=== PATIENT | female | born 1940 | race Native Hawaiian/Other Pacific Islander ===

== ENCOUNTER 2017-10-02 06:15 | Inpatient (IN) | payer MEDICARE ==
[2017-10-02] MEDS ORDERED: Sodium Chloride 0.9% 1,000 ML IV ONE (07:18)
[2017-10-02 07:34] LABS: BASO % 0.5 % (0.0-2.0); EOS # 0.2 K/uL (0.0-0.7); EOS % 3.2 % (0.0-4.0); LYMPH # 1.5 K/uL (1.0-4.3); LYMPH % 20.4 % (20.0-40.0); MEAN CELL VOLUME 86.7 fL (81.0-99.0); MEAN CORPUSCULAR HEMOGLOBIN 29.5 pg (27.0-31.0); MEAN CORPUSCULAR HGB CONC 34.1 g/dL (33.0-37.0); MEAN PLATELET VOLUME 7.9 fL (7.2-11.7); MONO # 1.1 K/uL (0.0-0.8); MONO % 14.9 % (0.0-10.0); NEUT # 4.5 K/uL (1.8-7.0); NRBC % 0.1 % (0.0-2.0); RBC 4.05 Mil/uL (3.80-5.20); RED CELL DISTRIBUTION WIDTH 14.2 % (11.5-14.5); WHITE BLOOD COUNT 7.3 K/uL (4.8-10.8)
[2017-10-02] MEDS ORDERED: Sodium Chloride 0.9% 1,000 ML ONE (08:02)
[2017-10-02 08:17] LABS: ALBUMIN 4.1 g/dL (3.5-5.0); ALT/SGPT 26 U/L (9-52); AST/SGOT 30 U/L (14-36); BLOOD UREA NITROGEN 33 mg/dL (7-17); CALCIUM 8.5 mg/dl (8.6-10.4); GFR AFRICAN-AMERICAN 33; GFR NON-AFRICAN AMERICAN 27
--- NOTE | 2017-10-02 09:42 | RAD ---
HISTORY: r/o infiltrate COMPARISON: Comparison is made to 02/25/2015 TECHNIQUE: Chest PA and lateral FINDINGS: LUNGS: No significant interval change in the lungs noted since the previous exam. Again noted are reticular opacities associated with bronchiectasis at the right upper lobe likely represent lung fibrosis and sequela of prior infection or inflammatory process. PLEURA: No significant pleural effusion identified. No pneumothorax apparent. CARDIOVASCULAR: Normal. OSSEOUS STRUCTURES: No significant abnormalities. VISUALIZED UPPER ABDOMEN: Normal. OTHER FINDINGS: None. IMPRESSION: No active disease.
[2017-10-02 10:03] LABS: SQUAMOUS EPITHIAL < 1 /hpf (0-5); URINE BACTERIA RARE (<OCC); URINE BILIRUBIN NEGATIVE (NEGATIVE); URINE BLOOD NEGATIVE (NEGATIVE); URINE CLARITY Clear (Clear); URINE COLOR Straw (YELLOW); URINE GLUCOSE (UA) NORMAL (Normal); URINE LEUKOCYTE ESTERASE NEG Leu/uL (Negative); URINE NITRATE NEGATIVE (NEGATIVE); URINE PROTEIN NEGATIVE (NEGATIVE); URINE UROBILINOGEN NORMAL mg/dL (0.2-1.0)
--- NOTE | 2017-10-02 12:51 | C.PDOC ---
History Of Present Illness 77 y/o female presents to the ED c/o lightheadedness and dizziness for past 2 days and several episodes of vomiting that began last night . The patient notes that the vomit consisted of foods and non bloody or bilious. The patient has not gotten the Flu vaccine. The patient denies chest pain, SOB, recent travel, and a non productive cough. Time Seen by Provider: 10/02/17 07:06 Chief Complaint (Nursing): Dizziness/Lightheaded History Per: Patient Onset/Duration Of Symptoms: Days Current Symptoms Are (Timing): Still Present Possible Causative Factor(s): Vertigo Recent travel outside of the [place]: No Additional History Per: Patient Past Medical History Reviewed: Historical Data, Nursing Documentation, Vital Signs Vital Signs: Last Vital Signs Temp 97.9 F 10/02/17 15:15 Pulse 76 10/02/17 16:00 Resp 18 10/02/17 15:15 BP 135/68 10/02/17 15:15 Pulse Ox 99 10/02/17 16:00 - Medical History PMH: Arthritis, Bronchitis, Diabetes, HTN, Hypercholesterolemia, Pneumonia Denies: Chronic Kidney Disease Surgical History: No Surg Hx - [facility] Procedures VACCINATION NEC (02/25/15) Family History: States: No Known Family Hx - Social History Hx Tobacco Use: No Hx Alcohol Use: No Hx Substance Use: No - Immunization History Hx Tetanus Toxoid Vaccination: Yes Hx Influenza Vaccination: Yes Hx Pneumococcal Vaccination: Yes Review Of Systems Except As Marked, All Systems Reviewed And Found Negative. Constitutional: Negative for: Fever, Chills Cardiovascular: Positive for: Light Headedness. Negative for: Chest Pain Respiratory: Negative for: Cough, Shortness of Breath Gastrointestinal: Positive for: Vomiting. Negative for: Nausea, Abdominal Pain , Diarrhea Skin: Negative for: Rash Neurological: Positive for: Dizziness Physical Exam - Physical Exam Appears: Non-toxic, No Acute Distress Skin: Warm, Dry Head: Atraumatic, Normacephalic Eye(s): bilateral: Normal Inspection Nose: No Discharge Oral Mucosa: Dry (mucous membrane) Neck: Supple Chest: Symmetrical Cardiovascular: Rhythm Irregular, Murmur (systolic ) Respiratory: Normal Breath Sounds, No Rales, No Rhonchi, No Wheezing Gastrointestinal/Abdominal: Soft, No Tenderness, No Guarding, No Rebound Back: Normal Inspection Extremity: Normal ROM, Capillary Refill (2<sec.) Neurological/Psych: Oriented x3, Normal Speech, Normal Cognition Gait: Steady ED Course And Treatment - Laboratory Results Result Diagrams: 10/02/17 07:29 10/02/17 07:29 ECG Rhythm: Sinus Rhythm (62 bpm,1 av block, and PVC) O2 Sat by Pulse Oximetry: 100 (RA) Progress Note: Plan: Spoke with the patient's primary physician regarding her case which has been reviewed and she is admitted to telemetry for further observation.Upon reassessment, the patient is aferbile and is no longer suffering from vomiting and dizziness. Medical Decision Making Medical Decision Making: HISTORY: r/o infiltrate COMPARISON: Comparison is made to 02/25/2015 TECHNIQUE: Chest PA and lateral FINDINGS: LUNGS: No significant interval change in the lungs noted since the previous exam. Again noted are reticular opacities associated with bronchiectasis at the right upper lobe likely represent lung fibrosis and sequela of prior infection or inflammatory process. PLEURA: No significant pleural effusion identified. No pneumothorax apparent. CARDIOVASCULAR: Normal. OSSEOUS STRUCTURES: No significant abnormalities. VISUALIZED UPPER ABDOMEN: Normal. OTHER FINDINGS: None. Disposition - Disposition Disposition: HOSPITALIZED Disposition Time: 10:10 Condition: STABLE - Clinical Impression Clinical Impression: Hyponatremia, Near syncope - Scribe Statement The provider has reviewed the documentation as recorded by the Melanieibronda [email or web address]
[2017-10-02] MEDS: Albuterol-Ipratrop 3 mg / 0.5 (3 ml) UD INH SCH ×2 (13:34→20:49)
[2017-10-02] MEDS: Sodium Chloride 0.9% 1,000 ML IV SCH ×2 (13:45→19:59)
[2017-10-02] MEDS: (Novolog) Insulin Aspart, Recombinant 100 u/ml 10 ml vial SC SCH ×2 (16:30→22:32)
[2017-10-02] MEDS ORDERED: DICLOFENAC SOD 50 MG PO PRN (19:30)
[2017-10-02] MEDS: DICLOFENAC SOD 50 MG PO PRN (19:52)
[2017-10-02] MEDS: Enoxaparin 30 mg Syringe SC SCH (21:47)
[2017-10-02] MEDS ORDERED: Enoxaparin 30 mg Syringe SC SCH (22:00)
[2017-10-03] MEDS: Sodium Chloride 0.9% 1,000 ML IV SCH ×3 (05:48→17:32)
[2017-10-03] MEDS: Albuterol-Ipratrop 3 mg / 0.5 (3 ml) UD INH SCH ×4 (07:15→20:03)
[2017-10-03] MEDS: (Novolog) Insulin Aspart, Recombinant 100 u/ml 10 ml vial SC SCH ×3 (08:16→17:24)
[2017-10-03 08:42] LABS: ALB/GLOB RATIO 1.1 (1.0-2.1); ALBUMIN 3.5 g/dL (3.5-5.0); CALCIUM 7.7 mg/dl (8.6-10.4)
[2017-10-03] MEDS: Metoprolol Succinate 50 mg XL Tab PO SCH (10:06)
[2017-10-03] MEDS: Enoxaparin 30 mg Syringe SC SCH ×2 (10:06→21:28)
--- NOTE | 2017-10-03 11:12 | CP.PCM.HP ---
History of Present Illness - History of Present Illness History of Present Illness: CC: vomitting HPI: 77 years old female , h/o diabetes, Hypertension c/o vomitting and dizzyness 1 days. No clear inciting factor.No chestpan, SOB, cough or fever. Blood test done elctrolyte abnormal. Present on Admission - Present on Admission Any Indicators Present on Admission: Yes History of DVT/PE: No History of Uncontrolled Diabetes: No Urinary Catheter: No Decubitus Ulcer Present: No Review of Systems - Constitutional Constitutional: Weakness - EENT Eyes: Blurred Vision Nose/Mouth/Throat: Dry Mouth - Breasts Breasts: absent: Mass - Cardiovascular Cardiovascular: absent: Chest Pain - Respiratory Respiratory: absent: Dyspnea - Gastrointestinal Gastrointestinal: absent: Abdominal Pain - Musculoskeletal Musculoskeletal: Muscle Weakness - Neurological Neurological: Abnormal Gait Past Patient History - Infectious Disease Hx of Infectious Diseases: None - Past Medical History & Family History Past Medical History?: Yes - Past Social History Smoking Status: Never Smoked - CARDIAC Hx Hypercholesterolemia: Yes Hx Hypertension: Yes - PULMONARY Hx Bronchitis: Yes Hx Pneumonia: Yes - NEUROLOGICAL Hx Neurological Disorder: No - HEENT Hx HEENT Problems: No - RENAL Hx Chronic Kidney Disease: No - ENDOCRINE/METABOLIC Hx Diabetes Mellitus Type 2: Yes - HEMATOLOGICAL/ONCOLOGICAL Hx Blood Disorders: No - INTEGUMENTARY Hx Dermatological Problems: No - MUSCULOSKELETAL/RHEUMATOLOGICAL Hx Arthritis: Yes - GASTROINTESTINAL Hx Gastrointestinal Disorders: No - GENITOURINARY/GYNECOLOGICAL Hx Genitourinary Disorders: No - PSYCHIATRIC Hx Substance Use: No - SURGICAL HISTORY Other/Comment: right ovary removed 2002 - ANESTHESIA Hx Anesthesia: Yes Hx Anesthesia Reactions: No Hx Malignant Hyperthermia: No Meds Allergies/Adverse Reactions: Allergies Allergy/AdvReac Type Severity Reaction Status Date / Time No Known Allergies Allergy Verified 10/02/17 06:33 Physical Exam - Constitutional Appears: Chronically Ill - Head Exam Head Exam: NORMAL INSPECTION - Eye Exam Eye Exam: Normal appearance - ENT Exam ENT Exam: Mucous Membranes Dry - Neck Exam Neck exam: Positive for: Normal Inspection - Respiratory Exam Respiratory Exam: NORMAL BREATHING PATTERN - Cardiovascular Exam Cardiovascular Exam: REGULAR RHYTHM - GI/Abdominal Exam GI & Abdominal Exam: Soft - Rectal Exam Rectal Exam: Deferred - Extremities Exam Extremities exam: Positive for: normal inspection - Back Exam Back exam: NORMAL INSPECTION - Neurological Exam Neurological exam: Abnormal Gait, Alert - Psychiatric Exam Psychiatric exam: Normal Mood - Skin Skin Exam: Dry Results - Vital Signs Recent Vital Signs: Last Vital Signs Temp 97.7 F 10/03/17 07:30 Pulse 79 10/03/17 09:59 Resp 20 10/03/17 07:30 BP 151/68 H 10/03/17 09:59 Pulse Ox 97 10/03/17 07:30 - Labs Result Diagrams: 10/02/17 07:29 10/03/17 07:49 Labs: Laboratory Results - last 24 hr 10/02/17 10/02/17 10/02/17 12:48 16:15 22:14 Sodium Potassium Chloride Carbon Dioxide Anion Gap BUN Creatinine Est GFR ( Amer) Est GFR (Non-Af Amer) POC Glucose (mg/dL) 113 H 128 H 118 H Random Glucose Calcium Total Bilirubin AST ALT Alkaline Phosphatase Total Protein Albumin Globulin Albumin/Globulin Ratio 10/03/17 10/03/17 06:10 07:49 Sodium 130 L Potassium 3.6 Chloride 96 L Carbon Dioxide 25 Anion Gap 12 BUN 25 H Creatinine 1.3 H Est GFR ( Amer) 48 Est GFR (Non-Af Amer) 40 POC Glucose (mg/dL) 100 Random Glucose 101 Calcium 7.7 L Total Bilirubin 0.4 AST 20 ALT 20 Alkaline Phosphatase 57 Total Protein 6.8 Albumin 3.5 Globulin 3.3 Albumin/Globulin Ratio 1.1 Assessment & Plan (1) Hyponatremia Status: Acute (2) Near syncope Status: Acute (3) Diabetes Status: Acute (4) Hypertension Status: Acute - Assessment and Plan (Free Text) Assessment: A: Continue medications. Physical therapy consult for gait disorder. - Date & Time Date: 10/03/17 Time: :
[2017-10-04] MEDS: Sodium Chloride 0.9% 1,000 ML IV SCH (03:45)
[2017-10-04] MEDS: Albuterol-Ipratrop 3 mg / 0.5 (3 ml) UD INH SCH ×5 (07:00→19:23)
[2017-10-04] MEDS: (Novolog) Insulin Aspart, Recombinant 100 u/ml 10 ml vial SC SCH ×4 (07:50→21:56)
[2017-10-04] MEDS: Enoxaparin 30 mg Syringe SC SCH ×2 (09:35→21:58)
[2017-10-04] MEDS: DICLOFENAC SOD 50 MG PO PRN (12:49)
[2017-10-04] MEDS: Metoprolol Succinate 50 mg XL Tab PO SCH (13:45)
--- NOTE | 2017-10-04 14:39 | CP.PCM.PN ---
Subjective - Date & Time of Evaluation Date of Evaluation: 10/04/17 Time of Evaluation: 14:35 - Subjective Subjective: Pt (+) unsteady gait and dizzy. Turn head on either side and felt room spinning. No CP, no SOB, no edema, no cough Objective - Vital Signs/Intake and Output Vital Signs (last 24 hours): Temp Pulse Resp BP Pulse Ox 98.1 F 90 20 149/53 L 99 10/04/17 07:00 10/04/17 10:50 10/04/17 07:00 10/04/17 10:50 10/04/17 07:00 Intake and Output: 10/04/17 10/04/17 06:59 18:59 Intake Total 2019 640 Balance 2019 640 - Medications Medications: Current Medications Albuterol/Ipratropium (Duoneb 3 Mg/0.5 Mg (3 Ml) Ud) 3 ml INH RQID [facility] Last Admin: 10/04/17 13:33 Dose: 3 ml Enoxaparin Sodium (Lovenox) 30 mg SC Q12 [facility] Last Admin: 10/04/17 09:35 Dose: 30 mg Home Med (Patient's Own Medication) 1 tab PO BID PRN PRN Reason: Arthritis Last Admin: 10/04/17 12:49 Dose: 1 tab Insulin Aspart (Novolog) 0 unit SC [facility] PRN Reason: Protocol Last Admin: 10/04/17 12:45 Dose: Not Given Losartan Potassium (Cozaar) 100 mg PO DAILY [facility] Last Admin: 10/04/17 09:33 Dose: 100 mg Meclizine HCl (Antivert) 25 mg PO [facility] Stop: 10/05/17 11:30 Last Admin: 10/04/17 12:45 Dose: 25 mg Metoprolol Succinate (Toprol Xl) 50 mg PO DAILY [facility] Last Admin: 10/04/17 13:45 Dose: 50 mg - Labs Labs: 10/02/17 07:29 10/03/17 07:49 - Constitutional Appears: No Acute Distress - Eye Exam Eye Exam: Normal appearance Pupil Exam: Miosis - ENT Exam ENT Exam: Mucous Membranes Moist - Respiratory Exam Respiratory Exam: Decreased Breath Sounds. absent: Rales, Rhonchi, Wheezes - GI/Abdominal Exam GI & Abdominal Exam: Soft. absent: Tenderness, Mass - Extremities Exam Extremities Exam: Full ROM, Normal Capillary Refill. absent: Calf Tenderness, Joint Swelling, Pedal Edema Assessment and Plan - Assessment and Plan (Free Text) Assessment: Dizziness, unsteady Gait/ Right foot pain Telemetry ? PVC's HTN, NIDDM, cont meds; inc Metoprolol & stop IN VF/ repeat labs Right foot x-ray Cardio eval
[2017-10-05 07:00] LABS: ALB/GLOB RATIO 0.9 (1.0-2.1); ALBUMIN 3.5 g/dL (3.5-5.0); ALT/SGPT 17 U/L (9-52); AST/SGOT 21 U/L (14-36); BLOOD UREA NITROGEN 23 mg/dL (7-17); CALCIUM 7.5 mg/dl (8.6-10.4); GFR AFRICAN-AMERICAN > 60; GFR NON-AFRICAN AMERICAN 53
[2017-10-05] MEDS: Albuterol-Ipratrop 3 mg / 0.5 (3 ml) UD INH SCH ×4 (07:20→20:25)
[2017-10-05] MEDS: (Novolog) Insulin Aspart, Recombinant 100 u/ml 10 ml vial SC SCH ×4 (08:12→21:26)
--- NOTE | 2017-10-05 09:26 | CP.PCM.PN ---
Subjective - Date & Time of Evaluation Date of Evaluation: 10/05/16 Time of Evaluation: 08:35 - Subjective Subjective: Pt still unsteady and dizzy despite Antivert No CP, no SOB, no edema; R foot pain is better w/ diclofenac Objective - Vital Signs/Intake and Output Vital Signs (last 24 hours): Temp Pulse Resp BP Pulse Ox 98.0 F 88 20 147/74 95 10/05/17 07:40 10/05/17 08:00 10/05/17 07:40 10/05/17 07:40 10/05/17 07:40 - Medications Medications: Current Medications Albuterol/Ipratropium (Duoneb 3 Mg/0.5 Mg (3 Ml) Ud) 3 ml INH RQID [facility] Last Admin: 10/05/17 07:20 Dose: 3 ml Enoxaparin Sodium (Lovenox) 30 mg SC Q12 [facility] Last Admin: 10/04/17 21:58 Dose: 30 mg Home Med (Patient's Own Medication) 1 tab PO BID PRN PRN Reason: Arthritis Last Admin: 10/04/17 12:49 Dose: 1 tab Insulin Aspart (Novolog) 0 unit SC ACHS [facility] PRN Reason: Protocol Last Admin: 10/05/17 08:12 Dose: Not Given Losartan Potassium (Cozaar) 100 mg PO DAILY [facility] Last Admin: 10/04/17 09:33 Dose: 100 mg Meclizine HCl (Antivert) 25 mg PO BID [facility] Stop: 10/05/17 11:30 Last Admin: 10/04/17 17:57 Dose: 25 mg Metoprolol Succinate (Toprol Xl) 100 mg PO DAILY [facility] - Labs Labs: 10/02/17 07:29 10/05/17 06:32 - Constitutional Appears: No Acute Distress - Eye Exam Eye Exam: Normal appearance - ENT Exam ENT Exam: Mucous Membranes Moist - Neck Exam Neck Exam: Full ROM. absent: Lymphadenopathy, Normal Inspection - Respiratory Exam Respiratory Exam: Clear to Ausculation Bilateral. absent: Decreased Breath Sounds, Rales, Rhonchi, Wheezes - Cardiovascular Exam Cardiovascular Exam: REGULAR RHYTHM, +S1, +S2. absent: Gallop, JVD - GI/Abdominal Exam GI & Abdominal Exam: Soft. absent: Tenderness - Extremities Exam Extremities Exam: Full ROM, Normal Capillary Refill. absent: Calf Tenderness, Joint Swelling, Pedal Edema - Neurological Exam Neurological Exam: Abnormal Gait, Alert, Oriented x3 - Psychiatric Exam Psychiatric exam: Anxious Assessment and Plan - Assessment and Plan (Free Text) Assessment: Dizziness; unsteady gait Atyp chest pain - now better; HTN Hyponatremia Await Cardio eval For head MRI Conrt meds
--- NOTE | 2017-10-05 10:36 | RAD ---
PROCEDURE: Right Foot Radiographs. HISTORY: Persistent R foot pain despite Diclofenac COMPARISON: None. FINDINGS: BONES: . No fracture. Osseous hypertrophic changes the tarsal bases 1st metatarsal head. Dorsal midfoot tarsal- metatarsal spurring. Inferior posterior calcaneal spurring JOINTS: First metatarsal-phalangeal joint hypertrophic arthrosis SOFT TISSUES: Normal. OTHER FINDINGS: IMPRESSION: No acute fracture or dislocation. Tarsal-metatarsal is hypertrophic changes. First metatarsal-phalangeal joint osteoarthrosis Calcaneal spurring
[2017-10-05] MEDS: Enoxaparin 30 mg Syringe SC SCH ×2 (10:46→22:06)
[2017-10-05] MEDS: Metoprolol Succinate 100 mg XL Tab PO SCH (10:46)
--- NOTE | 2017-10-05 12:39 | CARD ---
APPROVED REPORT EKG Measurement Heart [id number] <Conclusion> Sinus rhythm with sinus arrhythmia with 1st degree AV block with occasional premature ventricular complexes Otherwise normal ECG
--- NOTE | 2017-10-05 16:55 | MRI ---
PROCEDURE: MRI BRAIN WITHOUT CONTRAST HISTORY: Dizziness despite Antivert COMPARISON: None. TECHNIQUE: Multiplanar, multisequence MR images of the brain were obtained without intravenous contrast enhancement. FINDINGS: HEMORRHAGE: None DWI: No evidence of an acute or early subacute infarction. BRAIN PARENCHYMA: There are mild chronic microangiopathic changes. There is no mass, mass effect or abnormal extra-axial fluid collection. The midline sagittal structures are normal. VENTRICLES: There is mild age-related global parenchymal volume loss and proportionate enlargement of the ventricles and cortical sulci. CRANIUM: There is normal bone marrow signal pattern. ORBITS: Grossly normal in appearance. PARANASAL SINUSES/MASTOIDS: Predominantly clear. VASCULAR SYSTEM: There are normal signal voids in the larger intracranial arteries. OTHER FINDINGS: None. IMPRESSION: No acute intracranial abnormality. Mild chronic microangiopathic changes and mild age-related global parenchymal volume loss.
[2017-10-06] MEDS: Albuterol-Ipratrop 3 mg / 0.5 (3 ml) UD INH SCH ×2 (07:46→12:04)
[2017-10-06] MEDS: (Novolog) Insulin Aspart, Recombinant 100 u/ml 10 ml vial SC SCH ×2 (08:17→12:30)
[2017-10-06 08:19] VITALS: RESP 18
--- NOTE | 2017-10-06 09:13 | CP.PCM.PN ---
Subjective - Date & Time of Evaluation Date of Evaluation: 10/06/17 Time of Evaluation: 09:00 - Subjective Subjective: Pt feels well except dizzy. Comes and goes. Able to walk w/ daughter around [address]. minimal unsteady but use cane well. No CP, no SOB, no edema, no cough Objective - Vital Signs/Intake and Output Vital Signs (last 24 hours): Temp Pulse Resp BP Pulse Ox 98.1 F 77 18 143/73 97 10/06/17 07:40 10/06/17 07:40 10/06/17 07:40 10/06/17 07:40 10/05/17 23:15 - Medications Medications: Current Medications Albuterol/Ipratropium (Duoneb 3 Mg/0.5 Mg (3 Ml) Ud) 3 ml INH RQID [facility] Last Admin: 10/06/17 07:46 Dose: 3 ml Enoxaparin Sodium (Lovenox) 30 mg SC Q12 [facility] Last Admin: 10/05/17 22:06 Dose: 30 mg Home Med (Patient's Own Medication) 1 tab PO BID PRN PRN Reason: Arthritis Last Admin: 10/04/17 12:49 Dose: 1 tab Insulin Aspart (Novolog) 0 unit SC ACHS [facility] PRN Reason: Protocol Last Admin: 10/06/17 08:17 Dose: Not Given Losartan Potassium (Cozaar) 100 mg PO DAILY [facility] Last Admin: 10/05/17 10:46 Dose: 100 mg Metoprolol Succinate (Toprol Xl) 100 mg PO DAILY [facility] Last Admin: 10/05/17 10:46 Dose: 100 mg - Labs Labs: 10/02/17 07:29 10/05/17 06:32 - Constitutional Appears: No Acute Distress - Eye Exam Eye Exam: Normal appearance - ENT Exam ENT Exam: Mucous Membranes Moist - Neck Exam Neck Exam: Full ROM, Normal Inspection. absent: Lymphadenopathy - Respiratory Exam Respiratory Exam: Clear to Ausculation Bilateral. absent: Rales, Rhonchi, Wheezes - GI/Abdominal Exam GI & Abdominal Exam: Soft. absent: Tenderness, Mass - Extremities Exam Extremities Exam: Full ROM, Normal Capillary Refill. absent: Calf Tenderness, Joint Swelling, Pedal Edema - Neurological Exam Neurological Exam: Alert, Oriented x3 (Walks w/ cane) Assessment and Plan - Assessment and Plan (Free Text) Assessment: Unsteady gait w/ Vertigo; R foot DJD w/ Butsitis Hyponatremia HTN, NIDDM,, Hyoerlipidemia Foot X-ray and Btin MRI - not acute path Cont meds For discharge and OPD stress test
[2017-10-06] MEDS: Metoprolol Succinate 100 mg XL Tab PO SCH (10:32)
[2017-10-06] MEDS: Enoxaparin 30 mg Syringe SC SCH (10:37)
[2017-10-06 15:41] VITALS: BP 124/70; PULSE 82; TEMP 98.2
[2017-10-06 16:07] VITALS: O2SAT 100
== END 2017-10-06 19:30 | disposition home or self-care (01) | DRG 641 ==
LOC: C.ER 06:15 → C.9E 10:30 → INTOOBSV 10:30 → C.6T 11:02 → OBSVTOIN 10-05 15:22
PROVIDERS: ADMIT Internal Medicine; ATTEND Internal Medicine
DX: E87.1 Hypo-osmolality and hyponatremia (principal); E11.9 Type 2 diabetes mellitus without complications; E78.00 Pure hypercholesterolemia, unspecified; I10 Essential (primary) hypertension; M19.90 Unspecified osteoarthritis, unspecified site; R55 Syncope and collapse; R26.81 Unsteadiness on feet; I49.3 Ventricular premature depolarization; R07.89 Other chest pain; M19.071 Primary osteoarthritis, right ankle and foot; M71.9 Bursopathy, unspecified; Z79.4 Long term (current) use of insulin